=== PATIENT | female | born 1955 | race Caucasian/White ===

== ENCOUNTER 2021-08-05 08:55 | Day surgery (SDC) | payer MEDICARE ==
[2021-08-04 13:04] LABS: BASOPHILS # (AUTO) 0.1 X10'3 (0-0.2); BASOPHILS % (AUTO) 0.8 % (0-1); EOSINOPHILS # (AUTO) 0.2 X10'3 (0-0.9); EOSINOPHILS % (AUTO) 2.4 % (0-6); HEMATOCRIT 39.6 % (35.0-45.0); HEMOGLOBIN 12.8 g/dl (12.0-16.0); LYMPHOCYTES # (AUTO) 1.1 X10'3 (1.1-4.8); LYMPHOCYTES % (AUTO) 13.7 % (21-51); MEAN CORPUSCULAR HEMOGLOBIN 30.1 PG (27.0-31.0); MEAN CORPUSCULAR HGB CONC 32.4 g/dL (33.0-36.5); MEAN CORPUSCULAR VOLUME 92.9 FL (78-98); MEAN PLATELET VOLUME 8.2 FL (7.4-10.4); MONOCYTES # (AUTO) 0.6 X10'3 (0-0.9); MONOCYTES % (AUTO) 6.7 % (2-12); NEUTROPHILS # (AUTO) 6.3 X10'3 (1.8-7.7); NEUTROPHILS % (AUTO) 76.4 % (42-75); PLATELET COUNT 271 X10'3 (140-440); RED BLOOD COUNT 4.26 X10'6 (4.20-5.60); RED CELL DISTRIBUTION WIDTH 13.8 % (11.5-14.5); WHITE BLOOD COUNT 8.3 X10'3 (4.5-11.0)
[2021-08-04 13:14] LABS: ALBUMIN 3.3 G/DL (3.4-5.0); ANION GAP 10 (8-16); BLOOD UREA NITROGEN 26 MG/DL (7-18); CALCIUM 8.8 MG/DL (8.5-10.1); CHLORIDE 105 MMOL/L (99-107); GLUCOSE 117 MG/DL (70-104); POTASSIUM 4.7 MMOL/L (3.5-5.1); SODIUM 143 MMOL/L (135-145); TOTAL CARBON DIOXIDE 27.6 MMOL/L (24-32); eGFR 56 ML/MIN
[2021-08-04 13:24] LABS: APTT 26 SECONDS (22-32)
[~2021-08-05] VITALS: Ht 170.2 cm; Wt 147.4 kg
[2021-08-05] VITALS (10 sets, daily range): BP systolic 115–150; BP diastolic 55–103
[2021-08-05] MEDS ORDERED: LORazepam 0.5 MG tablet PO PRN (09:15)
[2021-08-05] MEDS ORDERED: LIDOcaine/PRILOcaine 5gm cream TP ONE (09:15)
[2021-08-05] MEDS ORDERED: diphenhydrAMINE 25mg capsule PO PRN (09:15)
[2021-08-05] MEDS ORDERED: normal saline 1,000 ML IV SCH (09:15)
[2021-08-05] MEDS ORDERED: MELO-100 PO (09:45)
[2021-08-05] MEDS ORDERED: TRAM50TA2 PO (09:45)
[2021-08-05] MEDS ORDERED: CARV6.253 PO (09:45)
[2021-08-05] MEDS ORDERED: PANT40TA54 PO (09:45)
[2021-08-05] MEDS ORDERED: ATOR40TA72 PO (09:45)
[2021-08-05] MEDS ORDERED: METF-438 PO (09:45)
[2021-08-05] MEDS ORDERED: GABA800T11 PO (09:45)
[2021-08-05] MEDS ORDERED: SUCR1TAB PO (09:45)
[2021-08-05] MEDS ORDERED: TRAZ-251 PO (09:45)
[2021-08-05] MEDS ORDERED: LISI5TAB22 PO (09:45)
[2021-08-05] MEDS ORDERED: CITA40TA17 PO (09:45)
[2021-08-05] MEDS ORDERED: CHOL200012 PO (09:49)
[2021-08-05] MEDS ORDERED: ASPI-611 PO (09:49)
[2021-08-05] MEDS ORDERED: verapamil 2.5 mg/ml inj IV ONE (11:32)
[2021-08-05] MEDS ORDERED: nitroGLYCERIN-Tridil 50MG/D5W 250 ML IV ONE (11:32)
[2021-08-05] MEDS ORDERED: LIDOcaine 1% (10mg/ml)w/preservative injection 20ml MDV ONE (11:33)
[2021-08-05] MEDS ORDERED: midazolam 1 mg/ML 2ml injection ONE (11:33)
[2021-08-05] MEDS ORDERED: heparin 1,000unit/ml 10ml vial 10 ML ONE (11:33)
[2021-08-05] MEDS ORDERED: iohexol 350 MG/ML 50ML vial IV ONE (11:33)
[2021-08-05] MEDS ORDERED: iohexol 350MG/ML 100ml bottle IV ONE (11:33)
[2021-08-05] MEDS ORDERED: fentaNYL/PF 50MCG/1 ML 2ML syringe ONE (11:42)
== END 2021-08-05 16:00 | disposition home or self-care (01) ==
LOC: SSTAY O 08:55
PROVIDERS: ATTEND Internal Medicine Cardiovascular Disease
DX: R94.39 Abnormal result of other cardiovascular function study (principal); R53.83 Other fatigue; I25.10 Atherosclerotic heart disease of native coronary artery without angina pectoris; E11.9 Type 2 diabetes mellitus without complications; I47.1 Supraventricular tachycardia; E78.5 Hyperlipidemia, unspecified; I10 Essential (primary) hypertension; Z79.899 Other long term (current) drug therapy; Z79.01 Long term (current) use of anticoagulants
CPT/HCPCS: 36415; 76937; 80048; 82948; 85025; 85610; 85730; 93005; 93458; 99152; C1769; C1894; J1644; J2250; J3010; J3490; J7030; Q0163; Q9967; A4620; A5120; A6258